=== PATIENT | male | born 2000 | race Caucasian/White ===

== ENCOUNTER 2021-07-10 14:05 | Emergency (ER) | payer SELFPAY ==
[2021-07-10] MEDS ORDERED: Bacitracin 1 PK ONE (15:00)
== END 2021-07-10 15:11 | disposition home or self-care (01) ==
LOC: ERS 14:05
DX: S61.224D Laceration with foreign body of right ring finger without damage to nail, subsequent encounter (principal); W26.8XXD Contact with other sharp object(s), not elsewhere classified, subsequent encounter